=== PATIENT | male | born 1945 | race Caucasian/White ===

== ENCOUNTER 2018-12-07 01:53 | Day surgery (SDC) | payer MEDICARE, OTHER ==
--- NOTE | 2018-12-04 10:09 | EKG ---
FACILITY: [facility] - [place] PATIENT NAME: ELIZ RESTREPO : [id number] MR: [id number]: [id number] EXAM DATE: ORDERING PHYSICIAN: GENOVEVA CHOUDHURY TECHNOLOGIST: ARIELLE Test Reason : PRE OP Blood Pressure : / mmHG Vent. Rate : 089 BPM Atrial Rate : 089 BPM P-R Int : 204 ms QRS Dur : 088 ms QT Int : 338 ms P-R-T Axes : 071 087 -09 degrees QTc Int : 411 ms Normal sinus rhythm Cannot rule out Inferior infarct , age undetermined Abnormal ECG No previous ECGs available Confirmed by Rojas Larios ([id number]) on 12/04/2018 6:54:12 PM Referred By: MACEY Confirmed By:Rojas Mcknight
[~2018-12-07] VITALS: Ht 188 cm; Wt 100.2 kg
[~2018-12-07 01:53] MED LIST: ASPI81TA15 PO; CEP500 PO; CHOL200023 PO; CYC10 PO; DAPA5TAB PO; DULA1.5P; IBU800 PO; LEV75 PO; LISI5TAB25 PO; METF-420 PO; OXYC-763 PO; PER PO; SIMV-42 PO; SIMV-49 PO; TEST200V2 IM
[2018-12-07] MEDS ORDERED: fentaNYL CITR 100 MCG/2 ML AMP ONE ×2 (08:41→12:22)
[2018-12-07] MEDS ORDERED: PROPOFOL EMUL(*) 10MG/ML 20 ML 20 ML ONE (08:44)
[2018-12-07] MEDS ORDERED: ONDANSETRON 4 MG/2 ML VIAL ONE (08:44)
[2018-12-07] MEDS ORDERED: LIDOCAINE MPF 1% 5 ML VIAL ONE (08:44)
[2018-12-07 09:28] VITALS: BP 110/77
[2018-12-07] MEDS ORDERED: FAMOTIDINE 20 MG TAB PO ONE (09:50)
[2018-12-07] MEDS ORDERED: NORMOSOL R SOLN(*) 1000 ML BAG 1,000 ML IV PRN (09:50)
[2018-12-07] MEDS ORDERED: MIDAZOLAM 2 MG/2 ML VIAL IVP PRN (09:50)
[2018-12-07] MEDS: ceFAZolin(*) 2GM/D5W 50ML 50 ML IVPB ONE ×2 (09:50→10:35)
[2018-12-07] MEDS ORDERED: LIDOCAINE/SOD BICARB 8.4% SYR ID ONE (09:50)
[2018-12-07] MEDS ORDERED: BUPIV/EPI 0.25% 1:200,000 50ML INFIL ONE (10:17)
[2018-12-07] MEDS ORDERED: BACITRACIN OINT 15 GM TUBE TP ONE (10:17)
[2018-12-07] MEDS ORDERED: DEXAMETHASONE SOD 4 MG/ML VIAL ONE (10:17)
[2018-12-07] MEDS ORDERED: ePHEDrine 25 MG/5 ML DISP.SYR IVP ONE (10:39)
[2018-12-07] MEDS ORDERED: MUPIROCIN 2% OINT 22 GM TUBE TP ONE (11:44)
[2018-12-07] MEDS ORDERED: CEFU250T11 PO (12:06)
[2018-12-07] MEDS ORDERED: HYDR-653 PO (12:06)
[2018-12-07] MEDS ORDERED: MUPI15CR2 TP (12:07)
[2018-12-07 13:00] VITALS: BP 122/75
[2018-12-07 13:15] VITALS: BP 120/75
[2018-12-07] MEDS ORDERED: APAP/HYDROCODONE 325/5 TAB PO PRN (13:20)
--- NOTE | 2018-12-07 13:22 | OPERATIVE REPORT 1 ---
EVENT DATE: December 07, 2018 SURGEON: Roberto Bonilla MD ANESTHESIOLOGIST: Yung Castillo MD ANESTHESIA: LMA. PREOPERATIVE DIAGNOSIS Basal cell carcinoma of right nasal ala. POSTOPERATIVE DIAGNOSIS Basal cell carcinoma of right nasal ala. PROCEDURE PERFORMED 1. Excision of right alar basal cell carcinoma. 2. Nasal reconstruction with bilobed rotational flap. INDICATIONS Please refer to the preoperative note. DESCRIPTION OF PROCEDURE The patient was positively identified in the preoperative area. He was accompanied there by his . Risks were again explained including, but not limited to, bleeding, infection, poor cosmetic result, flap failure, positive margin and need for further procedures and those associated with anesthesia. He acknowledged understanding of those risks. He was then brought back to the operative suite, placed supine on the operating table and anesthesia was administered. Once asleep, the patient was positioned and prepped and draped in the usual sterile fashion. The patient was noted to have an approximately 1 cm ulcerative lesion of the right nasal ala. An elliptical excision was planned and marked. A bilobed rotational flap was marked. Approximately 5 cc of 0.25% Marcaine with epinephrine was infiltrated. The lesion was widely excised. This was sent for frozen pathology. The margins were clear. The defect measured approximately 1 x 2 cm. The flap margins were then incised and the flap was undermined and rotated into place. The defect was closed with interrupted 6-0 Prolene suture. The patient was then turned to Anesthesia for emergence. ESTIMATED BLOOD LOSS 10 cc's. COMPLICATIONS No complications. MTDD
[2018-12-07 13:45] VITALS: BP 123/80
[2018-12-07 13:58] VITALS: BP 131/84
[2018-12-07 14:00] VITALS: BP 132/82
--- NOTE | 2018-12-07 14:42 | NUR ---
1300 PT ARRIVED TO [place] VIA CART, SAFETY MAINTAINED, VSS, PAIN 01/20. RORO AT BEDSIDE, PT TOLERATING PUDDING AND CRANBERRY JUICE 1315 VSS, TOLERATING CHEESE AND CRACKERS 1326 ORAL PAIN PILL GIVEN 1345 PT REMAINS ON 2L NC, STABLE, WILL CONTINUE AT HOME, UNDERSTANDS NEED TO USE O2 AND BIPAP AT HOME AFTER SURGERY 1358 PT READY TO GO HOME, ORTHOSTATICS STABLE 1400 PT ALLOWED TO DRESS, UP TO VOID, D/C INSTRUCTIONS COVERED WITH PT AND , ALL QUESTIONS ANSWERED. 1415 IV REMOVED WITH CAT TIP INTACT, PRESSURE DRESSING APPLIED 1430 PT WALKED TO ADMITTING ENTRANCE AND SELF TRANSFERRED TO CAR WITHOUT DIFFICULTY. DECLINED WC. ALL BELONGINGS WITH PT.
== END 2018-12-07 13:00 | disposition home or self-care (01) ==
LOC: OR 01:53
PROVIDERS: ATTEND Otolaryngology
DX: C44.81 Basal cell carcinoma of overlapping sites of skin (principal); E11.9 Type 2 diabetes mellitus without complications; I10 Essential (primary) hypertension
CPT/HCPCS: 11642; 36415; 36416; 82948; 88305; 93005; A9270; J1100; J2001; J2405; J2704; J3010; 82310; 82374; 82435; 82565; 82947; 84132; 84295; 84520; J0690

== ENCOUNTER → 2019-03-09 | Outpatient (CLI) | payer MEDICARE, OTHER ==
[~2019-03-09] MED LIST changes: +AMOX-559 PO; +CEFU250T11 PO; +HYDR-653 PO; +MUPI15CR2 TP; +MUPI22OI28 TP
== END ==
LOC: LAB 11:23
DX: E29.1 Testicular hypofunction (principal)
CPT/HCPCS: 36415; 84153; 84270; 84403